=== PATIENT | female | born 1980 | race Caucasian/White ===

== ENCOUNTER 2018-06-06 10:24 | Emergency (ER) | payer MEDICAID ==
[~2018-06-06] VITALS: Ht 154.9 cm; Wt 127.2 kg
[2018-06-06 12:44] VITALS: BP 101/78
[2018-06-06] MEDS ORDERED: KETOROLAC 30 MG/1 ML ONE (12:51)
[2018-06-06] MEDS ORDERED: KETOROLAC 30 MG/1 ML IM ONE (13:00)
== END 2018-06-06 13:30 | disposition home or self-care (01) ==
LOC: ED 11:20
DX: M25.561 Pain in right knee (principal); M79.661 Pain in right lower leg; M54.5 Low back pain; M25.562 Pain in left knee; R50.9 Fever, unspecified; R11.0 Nausea
CPT/HCPCS: 73564; 93971; 96372; 99284; J1885

== ENCOUNTER 2019-09-17 15:02 | Emergency (ER) | payer MEDICAID ==
[~2019-09-17] VITALS: Ht 152.4 cm; Wt 142.0 kg
[~2019-09-17 15:02] MED LIST: Albuterol; DOXE25CA PO; DULO30CA2 PO; HYDR50CA2 PO; flovent
[2019-09-17] MEDS ORDERED: KETOROLAC 30 MG/1 ML IM ONE (15:30)
[2019-09-17] MEDS ORDERED: ONDANSETRON ODT 4 MG PO ONE (15:30)
[2019-09-17] MEDS ORDERED: ONDANSETRON ODT 4 MG ONE (15:40)
[2019-09-17] MEDS ORDERED: KETOROLAC 30 MG/1 ML ONE (15:40)
--- NOTE | 2019-09-17 16:20 | NUR ---
PT. WAS GIVEN DISCHARGE INSTRUCTIONS AND SCRIPTS. UNDERSTANDING VERBALIZED ALONG WITH WILLINGNESS TO COMPLY. PT. WAS AMBULATORY TO THE DISCHARGE DESK. VSS. CMS CHECKS REMAIN INTACT. SPLINT IN PLACE.
[2019-09-17 16:27] VITALS: BP 135/75
== END 2019-09-17 17:10 | disposition home or self-care (01) ==
LOC: ED 16:05
DX: S63.521A Sprain of radiocarpal joint of right wrist, initial encounter (principal); F41.1 Generalized anxiety disorder; G43.909 Migraine, unspecified, not intractable, without status migrainosus; W18.30XA Fall on same level, unspecified, initial encounter; Y93.89 Activity, other specified; Y92.009 Unspecified place in unspecified non-institutional (private) residence as the place of occurrence of the external cause; Y99.8 Other external cause status
CPT/HCPCS: 29125; 73110; 96372; 99283; J1885; Q0162

== ENCOUNTER 2019-09-18 17:17 | Emergency (ER) | payer MEDICAID ==
[2019-09-18 17:24] VITALS: BP 122/76
--- NOTE | 2019-09-18 17:36 | NUR ---
Patient given discharge instructions and they have confirmed that they understand the instructions. Patient ambulatory with steady gait.
== END 2019-09-18 17:39 | disposition home or self-care (01) ==
LOC: ED 17:21
DX: M25.531 Pain in right wrist (principal); G43.909 Migraine, unspecified, not intractable, without status migrainosus
CPT/HCPCS: 29125; 99283